=== PATIENT | female | born 1960 | race Caucasian/White ===

== ENCOUNTER → 2020-01-07 | Outpatient (CLI) | payer BC, SELFPAY ==
--- NOTE | 2020-01-07 | VUL_PTH ---
PATIENT: ROSA WAGNER LOC: [facility] U#:[id number] AGE/SX: 59/F ROOM: RE01/07/[address]: Dr. Aleksander Pickering MD : [id number] BED: DIS: 01/07/2020 SPEC #: [id number] RECD: 01/07/20 17:30 STATUS: LAZARO ANDRESSA #: [id number] ROBERTO: 01/07/20 00:[address]: Aleksander Pickering DEPT: SURGICAL PATHOLOGY RECD BY: Bandar Brambila Tissues: A - Vulva, NOS B - Vulva, NOS Procedures: Surgery Specimen Level IV HEADER OPERATION: Vulva biopsy PRE-OP DIAGNOSIS: Vulvar mass TISSUE SUBMITTED: A - Right vulva biopsy, B - Left vulva biopsy MICROSCOPIC DIAGNOSIS A. Right vulva, biopsy: Consistent with inflamed verrucous keratosis. Negative for malignancy. B. Left vulva, biopsy: Consistent with fragments of inflamed verrucous keratosis. Negative for malignancy. NISHA:ramiro 01/11/20 COMMENT Correlation with clinical findings and appropriate follow up are necessary. Complete excision of the lesion is suggested, if clinically indicated. Case has been reviewed in consultation with Dr. Solorio who concurs with the above diagnosis. IDC:AM MICROSCOPIC DESCRIPTION Slides are reviewed. GROSS DESCRIPTION A - Received in fixative is one container labeled with the patient's name and designated biopsy right vulva. The specimen consists of a punch biopsy of turk-white skin measuring 0.3 cm in diameter and 0.3 cm in length. The specimen is totally submitted in one cassette. B - Received in fixative is one container labeled with the patient's name and designated biopsy left vulva. The specimen consists of multiple fragments of hemorrhagic soft tissue that in aggregate measure 1.5 x 0.5 x 0.2 cm. The specimen is totally submitted in one cassette. / NISHA:ramiro 01/08/20 TC:5 CPT: 32534 x2
== END | disposition home or self-care (01) ==
LOC: LABSPEC 01-08 09:03
PROVIDERS: Referring Provider Obstetrics & Gynecology; Visit Provider Obstetrics & Gynecology
DX: N90.89 Other specified noninflammatory disorders of vulva and perineum (principal)
CPT/HCPCS: 88305